=== PATIENT | male | born 1950 | race Caucasian/White ===

== ENCOUNTER 2022-06-27 00:11 | Emergency (ER) | payer OTHER ==
[~2022-06-27] VITALS: Ht 167.6 cm; Wt 100.0 kg
[2022-06-27 00:47] VITALS: BP 167/80
[2022-06-27] MEDS ORDERED: ERYT1OIN6 EACHEYE (08:54)
== END 2022-06-27 09:14 | disposition home or self-care (01) ==
LOC: ER 00:11
DX: H10.9 Unspecified conjunctivitis (principal); I10 Essential (primary) hypertension
CPT/HCPCS: 99283